=== PATIENT | female | born 1950 | race Caucasian/White ===

== ENCOUNTER 2019-12-28 07:00 | Outpatient (CLI) | payer MEDICARE, OTHER | END 2019-12-28 23:59 | LOC: COV 07:00 | PROVIDERS: ATTEND Ophthalmology | DX: Z01.812 Encounter for preprocedural laboratory examination (principal); Z20.828 Contact with and (suspected) exposure to other viral communicable diseases; H25.041 Posterior subcapsular polar age-related cataract, right eye ==

== ENCOUNTER 2019-12-31 08:47 | Day surgery (SDC) | payer MEDICARE, OTHER ==
[~2019-12-31 08:47] MED LIST: KETOROLAC 0.45% OPHTH DROPS ONE; PHENYLEPHRINE 2.5% OPHTH 2 ML DROPS ONE; PROPARACAINE 0.5% OPHTH DROPS 15 ML ONE
[2019-12-31] MEDS ORDERED: CYCLOPENTOLATE 2% OPHTH DROPS 2 ML RIGHTEYE ONE (09:03)
[2019-12-31] MEDS ORDERED: LACTATED RINGERS 500 ML IV ONE ×2 (09:07→10:43)
[2019-12-31] MEDS ORDERED: TIMOLOL 0.5% OPHTH DROPS ONE (09:48)
[2019-12-31] MEDS ORDERED: VANCOMYCIN OPHTHALMI 8MG/0.8ML 8 MG/0.8 ML SYRINGE IO ONE ×2 (09:48→10:33)
[2019-12-31] MEDS ORDERED: BSS/LIDOCAINE/EPINEPHRINE 1 ML SYRINGE ONE (09:48)
[2019-12-31] MEDS ORDERED: BRIMONIDINE 0.2% OPHTH DROPS 5 ML ONE (09:48)
[2019-12-31] MEDS ORDERED: TRIAMCIN/MOXIFLOX OPHTHALMIC 0.6 ML VIAL IO ONE ×2 (09:48→10:33)
[2019-12-31] MEDS ORDERED: EPINEPHrine 1 MG/ML AMP ONE (09:48)
--- NOTE | 2019-12-31 09:57 | ANESTHESIA ---
Pre-Anesthesia VS, & Labs - Diagnosis posterior subcapsule cataract @R - Procedure R extraction cataract w/IOL Vital Signs: Temp Pulse Resp BP Pulse Ox 36.7 C 76 12 114/70 98 12/31/19 09:08 12/31/19 09:08 12/31/19 09:08 12/31/19 09:08 12/31/19 09:08 Height: 5 ft 7 in Weight (kg): 65.8 kg Body Mass Index: 22.7 BMI Classification: Healthy weight - NPO >8 hours - Is Patient ?: No - Lab Results Lab results reviewed: Yes Home Medications and Allergies Home Medications: Ambulatory Orders Gabapentin [Neurontin] 1 tab PO TID 12/30/19 Interferon Beta-1A [Avonex Pen] 30 mcg INJ OAW 12/30/19 Pregabalin [Lyrica] 1 cap PO TID 12/30/19 Topiramate [Topamax] 1 tab PO TID 12/30/19 Gabapentin [Neurontin] 1 tab PO TID 12/30/19 Interferon Beta-1A [Avonex Pen] 30 mcg INJ OAW 12/30/19 Pregabalin [Lyrica] 1 cap PO TID 12/30/19 Topiramate [Topamax] 1 tab PO TID 12/30/19 Allergies/Adverse Reactions: Allergies Allergy/AdvReac Type Severity Reaction Status Date / Time ampicillin Allergy Rash Verified 12/30/19 13:40 Anes History & Medical History - Anesthetic History Anesthesia Complications: reports: No previous complications Family history of Anesthesia Complications: Denies Family history of Malignant Hyperthermia: Denies - Medical History Cardiovascular: reports: None Pulmonary: reports: None Gastrointestinal: reports: Ulcerative colitis Urinary: reports: None Neuro: reports: Multiple sclerosis (dx 2000) Musculoskeletal: reports: None Endocrine/Autoimmune: reports: None Skin: reports: None - Surgical History General: Colonoscopy Gynecologic: Hysterectomy Orthopedic: Knee replacement, Rotator cuff repair Exam General: Alert, Oriented x3, Cooperative Dental: WNL Mouth Openin Fingerbreadth Neck Mobility: Normal Mallampati classification: II Thyromental Distance: 4-6 cm Respiratory: Lungs clear, Normal breath sounds, No respiratory distress Cardiovascular: Regular rate Abdomen: Normal bowel sounds Neurological: Normal speech Mental/Cognitive Status: Alert/Oriented X3, Normal for patient Cognitive Status: Within normal limits Plan Anesthesia Type: MAC Consent for Procedure(s) Verified and Reviewed: Yes Code Status: Attempt Resuscitation ASA classification: 3-Severe systemic disease Is this case an emergency?: No
[2019-12-31] MEDS ORDERED: MIDAZOLAM 2 MG/2 ML VIAL IVP ONE (10:25)
[2019-12-31] MEDS ORDERED: CHONDR SULF/HYALURONATE SYRINGE IO ONE (10:32)
[2019-12-31] MEDS ORDERED: TIMOLOL 0.5% OPHTH DROPS OPTH ONE (10:32)
[2019-12-31] MEDS ORDERED: BRIMONIDINE 0.2% OPHTH DROPS 5 ML OPTH ONE (10:32)
[2019-12-31] MEDS ORDERED: BSS/LIDOCAINE/EPINEPHRINE 1 ML SYRINGE IO ONE (10:32)
[2019-12-31] MEDS ORDERED: EPINEPHrine 1 MG/ML AMP IR ONE (10:32)
[2019-12-31] MEDS ORDERED: PROPARACAINE 0.5% OPHTH DROPS 15 ML EACHEYE ONE (10:33)
[2019-12-31 10:53] VITALS: BP 100/61
--- NOTE | 2019-12-31 12:32 | OPERATIVE REPORT ---
DATE OF SERVICE: 12/31/2019 Physician: Arnoldo Fulton MD PREOPERATIVE DIAGNOSIS: Visually significant cataract, right eye. This was her first cataract surge ry. POSTOPERATIVE DIAGNOSIS: Visually significant cataract, right eye. This was her first cataract surg linus. PROCEDURE: Phacoemulsification with posterior chamber intraocular lens implant, right eye. SURGEON: Arnoldo Fulton MD ANESTHESIA: Monitored anesthesia care. COMPLICATIONS: None. OPERATIVE INDICATIONS: This is a 69-year-old woman with progressive vision loss in the right eye due to 2+ nuclear sclerotic and 2-3+ posterior subcapsular cataract. Best corrected visual acuity was 2 0/30 in the right eye. Indications for surgery are overall decrease in vision, difficulty seeing wor ds on a computer screen, difficulty reading, difficulty seeing words, closed captions or game scores on TV, difficulty seeing street signs, and difficulty with glare or bright lights in any situation. She was consented at length concerning risks and benefits of cataract surgery, after which she expres sed a desire to proceed with surgery. OPERATIVE PROCEDURE: The patient was taken to OR #3 and placed under monitored anesthesia care. Isma gical timeout was conducted confirming correct patient, correct procedure, and correct surgical site. She was given topical anesthesia and prepped and draped in the usual sterile fashion. The eye was entered at the 12 and 9 o'clock positions. Intracameral Shugarcaine was injected into the anterior c hamber, followed by Viscoat. A continuous-tear curvilinear capsulorrhexis was performed. The nucleu s was hydrodissected and phacoemulsified. The cortex was evacuated using automated infusion and aspi ration. There was significant leftover posterior capsular granular material, which was mostly remove d with infusion and aspiration set on ecuadorean. Provisc was injected in the capsular bag, and a 20.5 d iopter intraocular lens was inserted into the bag. Infusion and aspiration was used to evacuate the viscoelastic materials. The eye was inflated to physiologic pressure using balanced salt solution an d found to be watertight. Approximately 0.25 mL of a mixture of triamcinolone and moxifloxacin was i njected transsclerally into the vitreous in the inferotemporal quadrant. An additional 0.55 mL of a mixture of triamcinolone, moxifloxacin, and vancomycin was injected subconjunctivally in the superior quadrant for infection and inflammation prophylaxis. Wound integrity was checked with Weck-Nery spon ges. The patient was taken from the operating room in good condition and given postoperative instruc tions. TD: 12/31/2019 10:51
--- NOTE | 2019-12-31 13:33 | ANESTHESIA POST OP EVALUATION ---
Anesthesia Post Eval - Post Anesthesia Eval Vitals: Last Vital Signs Temp 36.6 C 12/31/19 10:52 Pulse 62 12/31/19 10:52 Resp 12 12/31/19 10:52 BP 100/61 12/31/19 10:52 Pulse Ox 96 12/31/19 10:52 CV Function Including HR & BP: positive: Stable Pain Control: positive: Satisfactory Nausea & Vomiting: positive: Negative Mental Status: positive: Baseline Respiratory Status: Airway Patent Hydration Status: Satisfactory Anesthesia Complications: positive: None
== END 2019-12-31 08:48 | disposition home or self-care (01) ==
LOC: SDS 08:47
PROVIDERS: ATTEND Ophthalmology
DX: H25.041 Posterior subcapsular polar age-related cataract, right eye (principal)
CPT/HCPCS: 66984; A9270; J3490; J7120; V2632

== ENCOUNTER 2022-04-05 17:35 | Outpatient (CLI) | payer MEDICARE, OTHER | END 2022-04-05 23:59 | disposition critical access hospital (66) | LOC: EMS 17:35 | DX: S00.83XA Contusion of other part of head, initial encounter (principal); M25.462 Effusion, left knee; W01.198A Fall on same level from slipping, tripping and stumbling with subsequent striking against other object, initial encounter; Y93.01 Activity, walking, marching and hiking; Y92.008 Other place in unspecified non-institutional (private) residence as the place of occurrence of the external cause | CPT/HCPCS: A0425; A0429 ==

== ENCOUNTER 2022-04-05 17:51 | Emergency (ER) | payer MEDICARE, OTHER ==
[2022-04-05] MEDS ORDERED: HYDROcod/ACETAM 5/325 MG TABLET PO STA (18:34)
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
--- NOTE | 2022-04-05 19:20 | XRAY Report ---
PROCEDURE: Knee 4 View LT INDICATIONS: l knee inj TECHNIQUE: 4 views of the left knee(s) were acquired. COMPARISON: None. FINDINGS: Bones: Mild arthrosis, particularly in the medial compartment. No displaced fracture. No dislocation . Soft tissues: Possible trace joint effusion. IMPRESSION: Mild arthrosis. No acute radiographic abnormality. If there is high concern for further derangement, consider MRI evaluation. Reviewed by: Jadiel Johnson MD on 04/05/2022 7:19 PM PST Approved by: Jadiel Johnson MD on 04/05/2022 7:19 PM PST Station ID: [id number]
--- NOTE | 2022-04-05 19:47 | CT Report ---
PROCEDURE: HEAD WO INDICATIONS: head inj TECHNIQUE: Noncontrast 4.5 mm thick angled axial sections acquired from the foramen magnum to the vertex. For r adiation dose reduction, the following was used: automated exposure control, adjustment of mA and/or kV according to patient size. COMPARISON: None. FINDINGS: Image quality: Good CSF spaces: Basal cisterns are patent. Lateral ventricles are symmetric. Volume: Vascular calcifications. Periventricular white matter disease is commonly seen with chronic m icroangiopathy. Volume loss is present. These findings are mild. Brain: No intracranial hemorrhage. Bermeo-white differentiation is grossly maintained. Craniofacial structures: Left supraorbital contusion. IMPRESSION: No acute intracranial abnormality. Left supraorbital soft tissue contusion. Reviewed by: Jadiel Johnson MD on 04/05/2022 7:46 PM PST Approved by: Jadiel Johnson MD on 04/05/2022 7:46 PM PST Station ID: [id number]
[2022-04-05] MEDS ORDERED: HYDROcod/ACET 5/325 Prepack 4 PO STA (20:00)
[2022-04-05 20:16] VITALS: BP 124/78
== END 2022-04-05 20:10 | disposition home or self-care (01) ==
LOC: EDUNIT# → ED 17:51
DX: S00.81XA Abrasion of other part of head, initial encounter (principal); S80.02XA Contusion of left knee, initial encounter; S09.90XA Unspecified injury of head, initial encounter; W18.39XA Other fall on same level, initial encounter; G35 Multiple sclerosis
CPT/HCPCS: 70450; 73564; 99283; 99284; A9270